=== PATIENT | male | born 1965 | race Caucasian/White ===

== ENCOUNTER 2016-10-30 23:51 | Emergency (ER) | payer OTHER ==
[~2016-10-30] VITALS: Ht 162.6 cm; Wt 72.6 kg
[2016-10-31 00:15] VITALS: BP 194/157
[2016-10-31] MEDS ORDERED: PredniSONE 20mg tab ORAL ONE (00:30)
[2016-10-31] MEDS ORDERED: LORazepam Inj 2mg/ml 1ml ONE (00:48)
[2016-10-31] MEDS ORDERED: LORazepam Inj 2mg/ml 1ml IV ONE (01:00)
[2016-10-31 01:15] LABS: BASOPHILS % (AUTO) 1.4 % (0.0-2.0); EOSINOPHILS % (AUTO) 1.7 % (0.0-3.0); LYMPHOCYTES % (AUTO) 40.3 % (20.0-45.0); MEAN CORPUSCULAR HEMOGLOBIN 29.5 PG (27.0-31.0); MEAN CORPUSCULAR HGB CONC 33.1 G/DL (32.0-36.0); MEAN CORPUSCULAR VOLUME 89 FL (80-99); MEAN PLATELET VOLUME 7.1 FL (6.5-10.1); MONOCYTES % (AUTO) 6.3 % (1.0-10.0); NEUTROPHILS % (AUTO) 50.3 % (45.0-75.0); PLATELET COUNT 310 K/UL (150-450); RED BLOOD COUNT 4.81 M/UL (4.70-6.10); WHITE BLOOD COUNT 8.3 K/UL (4.8-10.8)
[2016-10-31 01:22] LABS: ALANINE AMINOTRANSFERASE 18 U/L (3-41); ALBUMIN/GLOBULIN RATIO 1.2 (1.0-2.7); ANION GAP 18 (5-15); ASPARTATE AMINO TRANSFERASE 20 U/L (5-40); CARBON DIOXIDE 23 mEQ/L (20-30); CHLORIDE 98 mEQ/L (98-107); CREATININE 1.3 mg/dL (0.7-1.2); HEMOLYSIS 4; POTASSIUM 3.5 mEQ/L (3.4-4.9); SODIUM 139 mEQ/L (135-145); TOTAL PROTEIN 7.5 g/dL (6.6-8.7)
[2016-10-31 01:44] VITALS: BP 131/68
[2016-10-31 02:00] VITALS: BP 131/68
--- NOTE | 2016-10-31 02:00 | Emergency Room Report ---
History of Present Illness General Chief Complaint: Allergic Reaction Source: Patient, Family Member Present Illness HPI [id number] presents with acute agitation, palpitations, "feeling disconnected from my body" after ingesting 1/2 marijuana gummy bear for chronic back pain. Never taken MJ or other drugs previously. Denies known cardiac problems. + history of HTN. Allergies: Coded Allergies: PENICILLINS (Verified Allergy, Unknown, 10/31/16) Patient History Past Medical History: HTN Past Surgical History: none Pertinent Family History: none Social History: Denies: alcohol use, drug use, smoking Immunizations: UTD Reviewed Nursing Documentation: PMH: Agreed, PSxH: Agreed Nursing Documentation-PMH Past Medical History: No Stated History Review of Systems All Other Systems: negative except mentioned in HPI Physical Exam Vital Signs Date Time Temp Pulse Resp B/P Pulse Ox O2 Delivery O2 Flow Rate FiO2 10/31/16 00:08 97.9 152 28 194/157 98 Room Air Sp02 EP Interpretation: reviewed, abnormal General Appearance: normal inspection, well appearing, alert, moderate distress Head: normocephalic, atraumatic Eyes: bilateral eye EOMI, bilateral eye PERRL ENT: normal ENT inspection, hearing grossly normal, normal voice Neck: normal inspection, full range of motion, supple, no bony tend Respiratory: normal inspection, lungs clear, normal breath sounds, no respiratory distress, no retraction, no wheezing Cardiovascular #1: regular rate, rhythm, no edema Gastrointestinal: normal inspection Genitourinary: no CVA tenderness Musculoskeletal: normal inspection, back normal, normal range of motion, Carlos' s Sign negative Neurologic: normal inspection, alert, oriented x3, responsive, 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 tested, speech normal Psychiatric: normal inspection, judgement/insight normal, mood/affect normal, no suicidal/homicidal ideation, no delusions, anxious, other - very agitated Skin: normal inspection, normal color, no rash Lymphatic: normal inspection Medical Decision Making Diagnostic Impression: Primary Impression: Marijuana intoxication Qualified Codes: F12.920 - Cannabis use, unspecified with intoxication, uncomplicated ER Course Likely accidental intoxication of synthetic marijuana given borderline psychoses , severe tachycardia and severely elevated BP Improved with IV ativan, IVF Labs: No leuks. H&h stable. No metabolic abnormalities. Feels much better after medication BP and HR normalized DC home Last Vital Signs Date Time Temp Pulse Resp B/P Pulse Ox O2 Delivery O2 Flow Rate FiO2 10/31/16 01:44 98.0 98 21 131/68 100 Room Air Status: improved Disposition: HOME, SELF-CARE Condition: Improved Patient Instructions: Drug Overdose, Cannabis Use Disorder STEVEN GUAJARDO M.D. Oct 31, 2016 02:00
== END 2016-10-31 02:00 | disposition home or self-care (01) ==
LOC: EMR 10-31 01:04
DX: F12.929 Cannabis use, unspecified with intoxication, unspecified (principal); R00.2 Palpitations; I10 Essential (primary) hypertension; Z88.0 Allergy status to penicillin
CPT/HCPCS: 36415; 80053; 82550; 85025; 96374